=== PATIENT | female | born 1990 | race Asian ===

== ENCOUNTER 2020-02-03 15:21 | Inpatient (IN) ==
[2020-02-03] MEDS ORDERED: OXYTOCIN/DEXTROSE 5%-WATER 30 UNITS/500 ML BAG IV ONE (15:31)
[2020-02-03] MEDS ORDERED: LIDOCAINE HCL 50 ML VIAL PERI PRN (15:31)
[2020-02-03] MEDS ORDERED: BUTORPHANOL TARTRATE 2 MG/ML VIAL IV PRN ×2 (15:31)
[2020-02-03] MEDS ORDERED: ONDANSETRON 4 MG TAB.RAPDIS PO PRN (15:31)
[2020-02-03] MEDS ORDERED: RINGER'S SOLUTION,LACTATED 1,000 ML IV ONE (15:31)
[2020-02-03] MEDS: RINGER'S SOLUTION,LACTATED 1,000 ML IV PRN (15:55)
--- NOTE | 2020-02-03 16:33 | HP ---
Chief Complaint - Chief Complaint Date of Service: 02/03/20 Time of Service: 16:26 Chief Complaint: Labor induction History of Present Illness: 29 year old at 40w 6d who presents to L&D for a medical IOL due to post due date. She denies regular ctx or vb or lof. Fetus is active. Medical History (Last Reviewed 02/03/20 @ 16:30 by Julianne Bernardo MD) No pertinent past medical history Surgical History: Surgical History (Last Reviewed 02/03/20 @ 16:30 by Julianne Bernardo MD) No pertinent past surgical history Family History: Family History (Last Reviewed 02/03/20 @ 16:30 by Julianne Bernardo MD) Mother Heart disease Myocardial infarction Father Alive and well Social History: (Last Reviewed 02/03/20 @ 16:30 by Julianne Bernardo MD) Social History: adopted: No Marital status: household members: none number of children: 0 current occupational status: unemployed Highest education level completed: some college, no degree Sexually Active: No Service: No Tobacco: Smoking Status: Never smoker Alcohol: alcohol intake: never Substance Use: substance use type: does not use Dietary Habits: caffeine: Yes Type: coffee Pets: pets and animals: dog(s) Review Of Systems (GEN) - Review of Systems Generalized/Overall Review: Present: No Symptoms Reported Misc: All systems neg except as marked Allergies/Adverse Reactions: Allergies Allergy/AdvReac Type Severity Reaction Status Date / Time No Known Allergies Allergy Verified 02/03/20 14:18 Home Medications: HOME MEDICATIONS Vits96/Iron Fum/Folic [ S] 1 tab PO DAILY 02/03/20 [Last Taken 02/03/20 1300] Exam - Exam Vital Signs: Vital Signs - Last Taken Temp 36.8 C 02/03/20 15:39 Pulse 93 02/03/20 15:39 Resp 20 02/03/20 15:39 BP 130/73 02/03/20 15:39 Pulse Ox 99 02/03/20 15:39 Constitutional: Present: Alert, Oriented x3, Cooperative, No distress ENT Exam: Present: hearing grossly normal Eye Exam: bilateral eye: normal inspection Neck: Present: normal inspection Back Exam: Present: normal inspection, no CVA tenderness Breasts: Present: Exam deferred Respiratory: Present: lungs clear, normal breath sounds, no respiratory distress Cardiovascular/Chest: Present: regular rate, rhythm Abdomen: Present: soft, nontender, nondistended, no rebound tenderness /Rectal: Present: Other - //-2 AROM for clear fluid Extremity: Present: non-tender, no calf tenderness Skin Exam: Present: normal color, warm/dry, no cyanosis Neurologic: Present: alert, normal mood/affect, oriented x 3 Appearance: Present: appropriate appearance, appropriate insight, neat, no memory impairment Eye contact: Present: cooperative, good eye contact, normal speech Thoughts: Present: normal thought pattern Assessment/Plan - Narrative Narrative: 29 year old at 40w 6d 1. Medical IOL due to post due date: Pitocin currently at 2 milliunits/min, AROM for augmentation of labor 2. GBS negative: prophylaxis not indicated - Assessment/Plan (1) 40 weeks gestation of Problem: Acute
[2020-02-04] MEDS: RINGER'S SOLUTION,LACTATED 1,000 ML IV PRN (00:19)
[2020-02-04] MEDS ORDERED: GLYCERIN/WITCH HAZEL LEAF 40 APPL BOX TP PRN (03:26)
[2020-02-04] MEDS ORDERED: OXYTOCIN/DEXTROSE 5%-WATER 30 UNITS/500 ML BAG IV ONE (03:26)
[2020-02-04] MEDS ORDERED: IBUPROFEN 800 MG TABLET PO PRN (03:26)
[2020-02-04] MEDS ORDERED: diphenhydrAMINE HCL 25 MG CAPSULE PO PRN (03:26)
[2020-02-04] MEDS ORDERED: BISACODYL 10 MG SUPP.RECT RC PRN (03:26)
[2020-02-04] MEDS ORDERED: HYDROcodone/ACETAMINOPHEN 1 EACH TABLET PO PRN ×2 (03:26)
[2020-02-04] MEDS ORDERED: SENNOSIDES 8.6 MG TABLET PO PRN (03:26)
[2020-02-04] MEDS ORDERED: HYDROCORTISONE 30 APPL TUBE TP PRN (03:26)
[2020-02-04] MEDS ORDERED: BENZOCAINE/MENTHOL 81 SPRAY CAN TP PRN (03:26)
--- NOTE | 2020-02-04 03:26 | OR ---
Operative Report - Dictated Report Narrative: Date of delivery: 02/04/2020 Time of delivery: 256 Gender: female weight: 3241 grams APGARS: 6/9 Procedure: Description of the procedure: The patient is a 29 year old at 41w 0d who presented to labor and delivery for medical induction of labor due to post due date. She was started on pitocin and augmented with AROM. She progressed to complete dilation. The head delivered in direct OA presentation and rotated to [place] spontaneously after delivery. I checked for a nuchal cord and there was not one. The shoulders did not deliver spontaneously so first the [place] manuever was attempted without success followed by suprapubic pressure which released the impacted shoulder. The shoulders were delivered by gentle downward traction. The shoulder dystocia lasted 35 seconds. The rest of the infant delivered without difficulty. Meconium was noted. The cord was immediately clamped and cut as the did not appear vigorous. The infant was taken to the warmer for resuscitation by nursing staff. Cord blood was collected. The placenta delivered by expression and appeared intact. The membranes were trailing but eventually delivered intact and without any difficulty. A first degree perineal laceration measuring 1.5 cm was repaired with 3-0 rapide. Ten mL of lidocaine with epinephrine were injected as the patient did not have an epidural. EBL: 300 mL Complications: none Specimens: cord blood History for Definition: * The number of deliveries resulting in a live the patient experienced prior to current hospitalization * The previous delivery of live twins or any live multiple gestation is considered one live event. *If primagravida or nulliparous is documented select zero for the number of previous live births. Live Events: 0
[2020-02-04] MEDS ORDERED: PRENATAL VITS96/IRON FUM/FOLIC 1 TAB TABLET PO SCH (09:00)
[2020-02-04] MEDS: DOCUSATE SODIUM 100 MG CAPSULE PO SCH ×2 (15:38→21:35)
[2020-02-05] MEDS: DOCUSATE SODIUM 100 MG CAPSULE PO SCH ×2 (10:11→22:51)
--- NOTE | 2020-02-05 10:41 | PN ---
Subjective - Date and Time Seen Date: 02/05/20 Time: 10:39 Subjective Narrative: Patient without complaints Objective Objective Narrative: See vital signs - Review of Systems Generalized/Overall Review: Reports: No Symptoms Reported Misc: All systems neg except as marked - Vitals Vitals: Last Vital Signs Temp 35.9 C L 02/05/20 07:30 Pulse 89 02/05/20 07:30 Resp 18 02/05/20 07:30 BP 124/61 02/05/20 07:30 Pulse Ox 100 02/05/20 07:30 - Exam Constitutional: Present: Alert, Oriented x3, Cooperative, No distress ENT Exam: Present: hearing grossly normal Extremity: Present: non-tender, no calf tenderness Skin Exam: Present: normal color, warm/dry, no cyanosis Appearance: Present: appropriate appearance Eye contact: Present: cooperative, good eye contact Thoughts: Present: normal thought pattern Assessment/Plan Plan Narrative: PPD 1 s/p Doing well Discharge tomorrow - Problems/Diagnosis (1) 40 weeks gestation of Problem: Acute
[2020-02-06 07:30] VITALS: BP 131/65
--- NOTE | 2020-02-06 07:34 | PN ---
Subjective - Date and Time Seen Date: 02/06/20 Time: 07:32 Subjective Narrative: Patient without complaints Objective Objective Narrative: See vital signs - Review of Systems Generalized/Overall Review: Reports: No Symptoms Reported Misc: All systems neg except as marked - Vitals Vitals: Last Vital Signs Temp 36.7 C 02/06/20 07:15 Pulse 83 02/06/20 07:15 Resp 16 02/06/20 07:15 BP 131/65 02/06/20 07:15 Pulse Ox 100 02/06/20 07:15 - Exam Constitutional: Present: Alert, Oriented x3, Cooperative, No distress ENT Exam: Present: hearing grossly normal Abdomen: Present: soft, nontender, nondistended Extremity: Present: non-tender, no calf tenderness Skin Exam: Present: normal color, warm/dry, no cyanosis Neurologic: Present: alert, normal mood/affect, oriented x 3 Appearance: Present: appropriate appearance Eye contact: Present: cooperative Thoughts: Present: normal thought pattern Assessment/Plan Plan Narrative: PPD 2 s/p Doing well Discharge today Follow-up in 6 weeks or sooner for any other concerns - Problems/Diagnosis (1) 40 weeks gestation of Problem: Acute
[2020-02-06] MEDS: DOCUSATE SODIUM 100 MG CAPSULE PO SCH (08:45)
[2020-02-06] MEDS: PRENATAL VITS96/IRON FUM/FOLIC 1 TAB TABLET PO SCH ×2 (08:45→13:40)
== END 2020-02-06 15:15 | disposition home or self-care (01) | DRG 807 ==
LOC: OB 15:21
PROVIDERS: ADMIT Obstetrics & Gynecology; ATTEND Obstetrics & Gynecology
CPT/HCPCS: 59025; 86850